=== PATIENT | female | born 1960 | race Two or more races ===

== ENCOUNTER → 2024-04-27 08:12 | Outpatient (REF) | payer OTHER, SELFPAY | LOC: RAD 08:12 | PROVIDERS: ATTENDING PHYSICIAN Nurse Practitioner Family; FAMILY PHYSICIAN Family Medicine | DX: Z86.39 Personal history of other endocrine, nutritional and metabolic disease (principal); Z13.820 Encounter for screening for osteoporosis | CPT/HCPCS: 77080 ==

== ENCOUNTER 2024-06-25 22:37 | Day surgery (SDC) | payer OTHER, SELFPAY ==
[2024-06-25 22:47] VITALS: BP 126/84
[2024-06-25 23:14] LABS: % Basophils 0.2 % (0-2); % Immature Granulocytes 0.3 % (0-0.5); % Monocytes 9.9 % (1.7-9.3); % Neutrophils 71.6 % (42.2-75.2); Absolute Eosinophils 0.1 10^3/uL (0-0.7); Absolute Lymphocytes 1.8 10^3/uL (1.2-3.4); Absolute Monocytes 1.1 10^3/uL (0.1-0.6); Absolute Neutrophils 7.7 10^3/uL (1.4-6.5); Hematocrit 38.5 % (37.0-47.0); Hemoglobin 12.6 g/dL (12.0-16.0); Mean Corp Hgb Conc. 32.7 g/dL (33.0-37.0); Mean Corpuscular Hgb 29.2 pg (27.0-31.0); Mean Corpuscular Volume 89.1 fL (81.0-99.0); Mean Platelet Volume 10.5 fL (7.4-10.4); Nucleated Red Blood Cells % 0 %; Platelet Count 190 10^3/uL (130-400); Red Blood Cell Count 4.32 10^6/uL (4.20-5.40); Red Cell Dist. Width 12.9 % (11.5-14.5); White Blood Cell Count 10.7 10^3/uL (4.8-10.8)
[2024-06-25 23:32] LABS: ALT (SGPT) 14 U/L (0-35); AST (SGOT) 25 U/L (14-36); Albumin 4.9 g/dl (3.5-5.0); Alkaline Phosphatase 76 U/L (38-126); Blood Urea Nitrogen 19 mg/dl (7-17); Calcium 9.1 mg/dl (8.4-10.2); Carbon Dioxide 28 mmol/L (22-30); Chloride 101 mmol/L (98-107); Glucose 110 mg/dl (70-99); Potassium 4.5 mmol/L (3.5-5.1); Sodium 136 mmol/L (135-145); Total Protein 7.8 g/dl (6.3-8.2); eGFR > 60.00
[2024-06-26] VITALS (18 sets, daily range): BP systolic 106–137; BP diastolic 66–106; BMI 28.7
[2024-06-26 00:06] LABS: Urine Albumin Negative (Neg - Trace); Urine Bilirubin Negative (Negative); Urine Character Clear (Clear); Urine Color Yellow; Urine Glucose Negative (Negative); Urine Ketone Negative (Negative); Urine Leukocyte Negative (Negative); Urine Nitrite Negative (Negative); Urine Occult Blood Negative (Negative); Urine Specific Gravity 1.005 (<1.030); Urine Urobilinogen Negative (Neg - 1+); Urine pH 6.5 (5.0-9.0)
--- NOTE | 2024-06-26 03:41 | ED.GENMED ---
History of Present Illness
General
Chief Complaint: Abdominal Pain
Source: patient
Exam Limitations: none
Time Seen by Provider: 06/26/24 03:35
Nursing documentation reviewed up to this point in time: agreed with
History of Present Illness
History of Present Illness:
This is a 63-year-old woman who has no significant past medical history save for hypothyroidism, maintained on levothyroxine. She complains of mild generalized mid abdominal pain that began yesterday around 11 AM, somewhat persistent and now
primarily located right lower quadrant. This has been accompanied with mild nausea without vomiting. She has also had a low-grade fever of 99.5 �F as well as mild intermittent chills.
She denies diarrhea or constipation, no dysuria urgency or hematuria, no back pain or flank pain.
No history of similar episodes in the past.
She has not taken anything for discomfort.
Past History
Past History
ED Past Medical History: Hypothyroidism
ED Past Surgical History: Gynecological (Diagnostic laparoscopy for infertility.)
Social History
Tobacco: Non-smoker
Personal:
Living: with family
Employment: Employed
Family History
Family History: Other (Noncontributory)
Phy Exam
Physical Exam
Physical Exam:
GENERAL: 63-year-old woman appears somewhat younger than stated age, bright alert, pleasant, appears in no acute distress.
EYE: anicteric
NECK: Supple, nontender, no meningismus, no significant adenopathy.
ENT: oral mucosa is moist. No rhinorrhea.
CARDIAC: Regular rate and rhythm. no murmur.
LUNGS: Clear breath sounds bilaterally, no acute respiratory distress, no wheezes/rales/rhonchi
ABDOMEN: Soft, nondistended, moderate tenderness right lower quadrant as well as mild tenderness infraumbilical/suprapubic region. No r/g, no palpable masses, no cvat. normoactive BS.
NEUROLOGICAL: Alert and oriented x3, no focal neuro deficits.
SKIN: Warm and dry, normal color, skin intact. No rash.
MUSCULOSKELETAL: No C/C/E. peripheral pulses are full and equal b/l. No palpable tenderness.
PSYCH: Normal and appropriate interaction.
Sepsis
Sepsis Screening
Sepsis Assessment: Sepsis Ruled Out
Sepsis Screen
Sepsis Screen: Sepsis Ruled Out
Date: 06/26/24
Time: 07:51
Course
Orders/Labs/Results
Orders:
Orders
06/25/24 23:04
Complete Blood Count/With Diff Urgent
Comprehensive Metabolic Panel Urgent
Urinalysis Urgent
Date Specimen was Collected: 06/25/24
Time Specimen was Collected: 22:51
06/26/24 03:41
CT Abd/pelvis W Iv Cont Urgent
Comment:
Reason For Exam: RLQ abd pain x 1 day, low grde fever
06/26/24 03:45
0.9% Sodium Chloride 1000 ml [Nss] 1,000 ml IV BOLUS
06/26/24 05:03
Piperacillin/Tazo 4.5 Gram [Zosyn] 4.5 gram in 100 ml IV NOW
06/26/24 05:05
Electrocardiogram (*1) Urgent
Reason for Study: PreOp
EKG- Treatment ONCE
06/26/24 05:16
Admit/Transfer Patient As Directed
Co-Sign Provider:
Level of Care: Observation services
Assign to:: Medical/Surgical
Physician / Group: [facility]/ General Surgery Service
Diagnosis: acute appendicitis
06/26/24 05:17
PRN Pain Medication Management As Directed
May give lesser potent ordered pain med per pt: Yes
preference::
Protocol:: Medication orders for pain may be administered in a
manner that supports deferring to patient preference
when the pt is:
- Requesting an ordered lesser potent pain medication.
Least to most potent pain medications are defined
as: acetaminophen < NSAID < tramadol < opioids
(morphine, oxycodone, hydromorphone).
- Requesting a lesser dose of the same medication IF
ORDERED.
- Requesting a less intrusive route of administration
if both routes are prescribed by the provider (PO <
IV).
06/26/24 05:19
Code Status As Directed
Resuscitation Status: Full Code
06/26/24 06:00
Flush (0.9% Sodium Chloride) [Flush (Nss)] See Dose Instructions IV PER PROTOCOL
Abnormal Lab Results
06/25/24
23:04
MCHC 32.7 L g/dL
(33.0-37.0)
MPV 10.5 H fL
(7.4-10.4)
Absolute Neuts (auto) 7.7 H 10^3/uL
(1.4-6.5)
Absolute Monos (auto) 1.1 H 10^3/uL
(0.1-0.6)
Lymphocytes % 17.0 L %
(20.5-51.1)
Monocytes % 9.9 H %
(1.7-9.3)
BUN 19 H mg/dl
(7-17)
Glucose 110 H mg/dl
(70-99)
06/25/24 23:04
06/25/24 23:04
Vital Signs
Initial and Last Documented VS:
Initial Vital Signs
Temp Pulse Resp BP Pulse Ox
99.2 F 88 20 126/84 98
06/25/24 22:47 06/25/24 22:47 06/25/24 22:47 06/25/24 22:47 06/25/24 22:47
Last Documented Vital Signs
Temp Pulse Resp BP Pulse Ox
99.2 F 66 18 122/76 98
06/25/24 22:47 06/26/24 07:00 06/26/24 07:00 06/26/24 07:00 06/26/24 07:00
MDM/Problems Addressed
Differential Diagnosis Includes:
Concern for acute appendicitis, acute diverticulitis, colitis, small bowel obstruction.
Labs and urinalysis are all within normal limits.
Will check CT abdomen pelvis with IV contrast.
Patient offered pain medication which she declines.
Will continue to observe.
Chronic conditions affecting care: Previous abdomnial surgery
*Radiology
Radiology exam reviewed: radiology read reviewed
*Pulse Oximetry
Patient hypoxic: no
*EKG
Interpreted by ED Provider?: Yes
Interpretation: normal
Comparison EKG: no comparison EKG present
Rate: normal
Rhythm: sinus
[place]: normal axis
Interval: normal interval
QRS Pattern: normal QRS
Ischemia: no ischemia
*Critical Care Note
Total Time (30-74mins, 75-104mins- exclusive of procedures): Not Applicable
Update Note
Update Note:
05:00
CAT scan shows acute appendicitis.
Case discussed with general surgery. Will admit to [facility], initiate IV Zosyn, will plan for OR today.
Due to age, will obtain preop EKG.
ED Attending Note
-
Portions of this chart may have been created with voice recognition software.� Occasional wrong word or��sound alike� substitutions may have occurred due to the inherent limitations of voice recognition software.
Discharge Plan
Departure
Patient Disposition: Admit
Date of Disposition: 06/26/24
Time of Disposition: 05:03
Admit to: Med/Surg
Admit to doctor: Shayan
Presentation/result/management discussed w/ accepting MD/DO: gen surgery
Discharge Problem:
Acute appendicitis
Interventions
Interventions:
*Risk Screen - Suicide Last Done: 06/25/24 22:47
*General Assessment Last Done: 06/26/24 02:35
*Neglect/Abuse Screening Last Done: 06/25/24 22:47
ED- Fall Risk Assessment Last Done: 06/26/24 02:35
*ED COVID-19 Vaccine History Last Done: 06/26/24 02:35
DW-Rqyjuj-Eywytnnxlk Assessment Last Done: 06/26/24 02:35
[2024-06-26] MEDS: NSS 1000 IV ×2 (03:54→11:18)
[2024-06-26] MEDS: ZOSYN 100 IV (05:19)
--- NOTE | 2024-06-26 05:37 | HPS.HSE ---
Addendum entered and electronically signed by Ignacio Sales MD 06/26/24 10:55:
I saw and examined the patient independently.
The Repairer Screen Crusher's note was reviewed and I agree with the note, assessment and plan except where noted below.
Comment: This is a 63-year-old female with history of a diagnostic laparoscopy for endometriosis and adhesions who presents with a 1 day history of right lower quadrant abdominal pain found to have acute appendicitis.
Will plan for a laparoscopic appendectomy in the OR today.
N.p.o., IV fluids, IV antibiotics ordered.
Dispo pending operative findings.
Risks/Benefits/Alternatives, expected postoperative course and possible complications (bleeding, infection, injury to surrounding structures, acute/chronic pain) discussed at length. Patient wishes to proceed with surgery. All questions answered.
Consent obtained.
I spent 60 minutes in total for the care of this patient today including direct patient care and counseling, reviewing labs, imaging, coordination of care, as well as documentation.
Original Note:
Family Physician
-
Family Physician: Anant Diez
Chief Complaint
-
abdominal pain with nausea
History of Present Illness
This is a very pleasant 63 year old female who comes to the ED with one day's worth of general mild abdominal pain centrally located which increased in intensity along with intermittent nausea. Eventually extending down to right lower quadrant. No
vomiting. [employer] feverish with mild chills. low grade temperature 99-99.5 degrees . Pain on palpation. Movement exacerbates symptoms. No pain control medication taken at home. She denies CP, SOB, BARNES, diarrhea, or dysuria. PMH includes hypothyroidism.
PSH includes laparoscopic procedure for infertility.
Medical History
Past Medical History
Past Medical History: Reports Hypothyroidism
Additional Past Medical History:
endometriosis
Past Surgical History: Reports Gynocological
Additional Past Surgical History:
laprascopic procedure for infertility
Social History
Tobacco: Non-smoker
Alcohol: Occasional
Drug: None
Personal:
Living: With Family
Employment: Employed
Family History
Family History: Not pertinent
Allergies / Home Medications
Allergies reflects when Allergies were last updated in [facility].
Home Medications with original date entered in [facility]
Allergy/Medication List:
Allergies
Allergy/AdvReac Type Severity Reaction Status Date / Time
bee venom protein (honey bee) Allergy Unknown Verified 06/25/24 22:50
oyster extract Allergy Unknown Verified 06/25/24 22:50
Levothyroxine
Review of Systems
-
History Source: Patient and Coordinated Provider
Constitutional: Reports No Symptoms
EENT: Reports No Symptoms
Respiratory: Reports No Symptoms
Cardiac: Reports No Symptoms
Abdomen/GI: Reports Abdominal Pain
: Reports No Symptoms
Musculoskeletal: Reports No Symptoms
Skin: Reports No Symptoms
Neurological: Reports No Symptoms
Endocrine: Reports No Symptoms
Hematologic/Lymphatic: Reports No Symptoms
Psych: Reports No Symptoms
Physical Exam
Vital Signs
Vital Signs
Temp Pulse Resp BP Pulse Ox
99.2 F 78 22 108/66 96
06/25/24 22:47 06/26/24 02:40 06/26/24 02:40 06/26/24 02:40 06/26/24 02:35
Physical Exam
General: Well Developed, Well Nourished, No Apparent Distress and Comfortable
HEENT: NormoCephalic, Moist mucous membranes, Atraumatic and PERRLA
Respiratory: Clear and Non Labored Respirations
Cardiac: Regular Rhythm
GI: Soft and Tender
Rectal: Deferred by Provider
Genito-urinary: No costovertebral tender
Musculoskeletal: No Clubbing, No Cyanosis and No Edema
Skin: Warm and Dry
Neuro: Awake, Alert, AO x 3 and No Motor Deficits
Hematologic/Lymphatic: No Lymphadenopathy
Psych: Calm
Laboratory Results
-
06/25/24 23:04
06/25/24 23:04
Laboratory Results
Total Bilirubin 1.0 mg/dl (0.2-1.3) 06/25/24 23:04
AST 25 U/L (14-36) 06/25/24 23:04
ALT 14 U/L (0-35) 06/25/24 23:04
Alkaline Phosphatase 76 U/L (38-126) 06/25/24 23:04
Data Reviewed
-
CT Scan: Report Reviewed by me
Lab Data: Labs Reviewed by me
Old Records: Reviewed
Impression/Plan
-
IMPRESSION: acute appendicitis
PLAN: This is a very pleasant 63 year old female who comes to the ED with one day's worth of general mild abdominal pain centrally located which increased in intensity along with intermittent nausea. Eventually extending down to right lower
quadrant. No vomiting. [employer] feverish with mild chills. low grade temperature 99-99.5 degrees . Pain on palpation. Movement exacerbates symptoms. No pain control medication taken at home. She denies CP, SOB, BARNES, diarrhea, or dysuria. PMH includes
hypothyroidism. PSH includes laparoscopic procedure for infertility.
*Acute appendicitis: Zosyn, NS IVF, NPO, Dilaudid IV, Zofran.
*Hypothyroid: Restart Levothyroxine post procedure.
*DVT prophylaxis: SCDs, TEDs, oob ambulate
*Disposition: FC. General Surgery Service.
[2024-06-26] MEDS: ZOSYN 50 IV (11:19)
--- NOTE | 2024-06-26 11:31 | W.SUR.PREOP ---
Pre-Operative Surgical Note
-
I have examined this patient prior to the performance of the scheduled procedure.
The patient's condition is unchanged from the time of the current History and
Physical and the patient is able to undergo the scheduled procedure.
--- NOTE | 2024-06-26 14:47 | W.IMMPOSTOP ---
Surgical Immed Post Op Note
-
Primary Surgeon: Ignacio Sales MD
Assisting Surgeon: Williams Berg MD (PGY 1)
Cigarette Catcher: CARA Mohan
Pre-op Diagnosis: Acute appendicitis
Post-op Diagnosis: Same
Procedure Performed: Laparoscopic appendectomy
Anesthesia Type: General
Specimen / Cultures: Appendix
Estimated Blood Loss: 5 cc
Complications: None
Operative Findings: Three 5 mm appendectomy. Acutely inflamed, suppurative but nonperforated appendicitis. Base taken with 0 PDS Endoloops x 2.
POST OP PLAN:
Will discharge home from PACU without further antibiotics.
--- NOTE | 2024-06-26 14:52 | OR.RPT ---
Operative Report
Operative Report
Patient Name: Kamini Karimi
: 1960
Date of Operation: 06/26/2024
Preoperative Diagnosis: Acute Appendicitis
Postoperative Diagnosis: Same
Procedure(s):
Laparoscopic Appendectomy
Surgeon(s):
Dr. Sales
Nitric Acid Concentrator Operator(s):
Williams Berg MD (PGY 1)
CARA Mohan
Anesthesia: General
Estimated Blood Loss: 5 cc
Urine Output: None
Drains/Lines/Implants: None
Specimens:
1. Appendix
HPI/Surgical Indications:
This is a 63-year-old female who presents with a 1 day history of abdominal pain. Exam, labs and imaging are consistent with acute appendicitis. Risks/Benefits/Alternatives were discussed at length, and the patient agreed to proceed with surgery.
Findings:
Three 5 mm port appendectomy. Acutely inflamed but not perforated appendicitis. Base taken with a 0 PDS Endoloop x 2. Some bleeding noted from the left lower quadrant port site in the region of the inferior epigastrics that stopped spontaneously.
No hematoma noted.
Procedure Description:
The patient was placed in the supine position, with the left arm tucked, and general anesthesia was induced. The abdomen was prepared and draped in a sterile fashion so as to expose the entire abdomen. A surgical time out was taken. Abdominal access
was obtained with aleft subcostal Veress entry which required a single pass followed by a 5 mm left lower quadrant Optiview trocar. After confirming no injury on entrance, two additional 5mm ports were placed in the suprapubic area just off midline
and in the infraumbilical area through her prior incision. Small umbilical/incisional hernia was noted in this area and used as her entry point. The patient was placed in Trendelenberg with the right slightly up . The appendix was identified and a
window was created in the mesoappendix. The appendix was suppurative and inflamed but not perforated. Using a laparoscopic bipolar energy device, the meso appendix was divided. The base of the appendix appeared uninvolved and was ligated/divided
using two 0-PDS Endoloops and the energy device. The appendix was placed in a specimen retrieval bag. Hemostasis was confirmed and the ports were removed under visualization. There was some bleeding from the left lower quadrant port that appeared
to be venous and stopped spontaneously after port removal. No hematoma was noted despite rechecking the area 3 to 4 minutes after port removal. The specimen was passed off the field. The umbilical port was closed with a [id number] 0-PDS and
the skin for all three ports was closed with interrupted monocryls and covered with dermabond. The patient was awoken from anesthesia in good condition and transported to the recovery area.
I was the attending physician and performed the procedure with assistance from the resident as well as the PA student above. I was present for all portions of the case including skin closure.
Ignacio Sales MD
== END 2024-06-26 13:19 | disposition still patient (30) ==
LOC: EMR 22:37
PROVIDERS: ATTENDING PHYSICIAN Emergency Medicine; FAMILY PHYSICIAN Family Medicine
DX: K35.80 Unspecified acute appendicitis (principal)
CPT/HCPCS: 44970; 88304; 74177; 80053; 81003; 85025; 93005; 96360; 99285; C1776; G0378; Q9967